=== PATIENT | male | born 1950 | race Caucasian/White ===

== ENCOUNTER 2016-07-30 20:56 | Emergency (ER) | payer MEDICARE ==
[~2016-07-30 20:56] MED LIST: ACET500CAP PO; ADVAIR INH; ALA-CORT1 % EX; ASAB PO; CILOSTAZOL100 MG PO; DIOVAN HC1 PO; DIOVAN320 MG PO; FORTAMET500 MG PO; GLUCPH PO; IMDUR30 PO; LIPITOR40 PO; LOP25 PO; NEXIUM40 PO; NITROSTAT0.4 MG SL; NORCO1 TAB PO; PLAVIX; PLAVIX PO; SPIRIVA RESPIMAT INH; VENTOLIN HFA INH; ZYRTEC ALLGY10 MG PO
[2016-07-30 23:58] LABS: WBC (NOT ORDERED) (RFLEX) 0 (0-5)
[2016-07-31] LABS: ASCORBIC ACID (UR NOT ORDER) NEG (NEG); BILIRUBIN, URINE NEGATIVE (NEG); ER URINALYSIS TAT 0 Hrs 02 Mins; KETONE, URINE NEGATIVE (NEG); LEUKOCYTE ESTERASE(NOT OR NEG (NEG); NITRITE (URINE) NEG (NEG)
[2016-07-31 00:23] LABS: BASOPHILS 0.1 %; BASOPHILS ABSOLUTE 0.01 10/3/uL (0.0-0.16); EOSINOPHILS 1.1 %; EOSINOPHILS ABSOLUTE 0.14 10/3/uL (0.0-0.53); ER CBC TAT 0 Hrs 05 Mins; HEMATOCRIT 35.1 % (40.0-51.0); HEMOGLOBIN 11.8 g/dL (13.6-17.8); IMMATURE GRANULOCYTES 0.4 %; IMMATURE GRANULOCYTES ABSOLUTE 0.05 10/3/uL (0.0-0.11); LYMPHOCYTES ABSOLUTE 2.48 10/3/uL (0.67-4.30); MANUAL DIFF NO %; MEAN CORPUS HGB CONC 33.6 g/dL (32.0-36.0); MEAN CORPUSCULAR VOLUME 86.2 fL (80-100); MEAN PLATELET VOLUME 9.3 fL (9.2-13.0); MONOCYTES 9.3 %; MONOCYTES ABSOLUTE 1.15 10/3/uL (0.21-1.20); NEUTROPHILS 69.1 %; NEUTROPHILS ABSOLUTE 8.56 10/3/uL (2.02-8.40); PLATELET COUNT 184 10/3/uL (150-400); RBC DISTRIBUTION WIDTH 14.9 % (12.0-16.0); RED CELL COUNT 4.07 10/6/uL (4.7-6.1); WHITE BLOOD CELLS 12.4 10/3/uL (4.5-10.5)
[2016-07-31 00:43] LABS: A/G RATIO 0.9 (0.7-1.9); ALBUMIN 3.6 G/DL (3.5-5.0); ALKALINE PHOSPHATASE 102 U/L (45-117); BUN (BLOOD UREA NITROGEN) 7 MG/DL (6-23); CALCIUM, SERUM 8.7 MG/DL (8.5-10.4); CHLORIDE, SERUM 102 MMOL/L (96-112); CO2 (CARBON DIOXIDE) 26 MMOL/L (24-34); CPK (IF ELEVATED MB BANDS) 54 U/L (0-200); CREATININE 0.79 MG/DL (0.70-1.30); GFR AFRICAN AMERICAN 111 ML/MIN (>=60); GFR NON AFRICAN AMERICAN 96 ML/MIN (>=60); GLOBULIN 3.8 G/DL (2.5-4.1); GLUCOSE, SERUM 107 MG/DL (60-99); POTASSIUM, SERUM 3.4 MMOL/L (3.5-5.3); SGOT(AST) 8 U/L (5-40); SGPT(ALT) 15 U/L (5-65); SODIUM, SERUM 140 MMOL/L (135-148); TOTAL BILIRUBIN 0.6 MG/DL (0-1.2); TOTAL PROTEIN 7.4 G/DL (6.0-8.5)
== END 2016-07-31 01:21 | disposition home or self-care (01) ==
LOC: ER 20:56
PROVIDERS: Specialist
DX: R10.30 Lower abdominal pain, unspecified (principal); M79.604 Pain in right leg; M79.605 Pain in left leg; G62.9 Polyneuropathy, unspecified; I10 Essential (primary) hypertension; E11.9 Type 2 diabetes mellitus without complications; F17.200 Nicotine dependence, unspecified, uncomplicated; Z98.61 Coronary angioplasty status
CPT/HCPCS: 71010; 74176; 80053; 81001; 82550; 83690; 85025; 93005; 96374; 99285; A9270-GY; J2405